=== PATIENT | female | born 1965 | race Caucasian/White ===

== ENCOUNTER → 2022-09-13 | Day surgery (SDC) | payer OTHER ==
[2022-09-10 15:48] VITALS: BMI 29.8
[~2022-09-13] MED LIST: ACETAMINOPHEN 325 MG TABLET (FP) PO PRN; BUPIVACAINE HCL/PF 0.25% (2.5MG/ML) 10 ML VIAL ONE; ESCITALOPRAM OXALATE 10 MG TABLET PO SCH; FAMOTIDINE 20 MG/50 ML IVPB 20 MG/50 ML MG IVPB SCH; FENTANYL CITRATE/PF 50 MCG/ML VIAL ONE; GLYCOPYRROLATE 0.2 MG/1 ML VIAL ONE; KETOROLAC TROMETHAMINE 30 MG/1 ML VIAL ONE; LACTATED RINGERS SOLUTION 1,000 ML IV SCH; LEVOTHYROXINE NA 100 MCG TABLET (FP) PO SCH; LIRAGLUTIDE 3 MG/0.5 ML SQ SCH; MIDAZOLAM HCL 2 MG/2 ML SINGLE DOSE VIAL ONE; NEOSTIGMINE METHYLSULFATE 0.5 MG/1 ML - 10 ML MDV ONE; ONDANSETRON 4 MG/2 ML VIAL IVPUSH PRN; PROMETHAZINE HCL 25 MG/1 ML VIAL IVPB PRN; PROPOFOL 20 ML ONE; ROCURONIUM BROMIDE 50 MG/5 ML SYRINGE ONE; SODIUM CHLORIDE 0.9% P/F 10 ML VIAL IJ ONE; SODIUM CHLORIDE 1,000 ML IV SCH; ceFAZolin SODIUM 1 GM VIAL ONE; oxyCODONE HCL 5 MG TABLET ONE; oxyCODONE HCL 5 MG TABLET PO ONE; oxyCODONE HCL 5 MG TABLET PO PRN
[2022-09-13 10:08] VITALS: RESP 16
[2022-09-13 10:30] VITALS: TEMP 97.8
[2022-09-13 11:01] VITALS: BP 123/67; PULSE 88
== END | disposition home or self-care (01) ==
LOC: FASU 06:46
PROVIDERS: ATTEND Surgery
PROC: 0DP64CZ Removal of Extraluminal Device from Stomach, Percutaneous Endoscopic Approach (ICD-10-PCS; principal; 2022-09-13 08:21)
DX: T85.518A Breakdown (mechanical) of other gastrointestinal prosthetic devices, implants and grafts, initial encounter (principal); K95.09 Other complications of gastric band procedure; R11.2 Nausea with vomiting, unspecified; R13.10 Dysphagia, unspecified; Y73.3 Surgical instruments, materials and gastroenterology and urology devices (including sutures) associated with adverse incidents; Y93.89 Activity, other specified; Y92.89 Other specified places as the place of occurrence of the external cause
CPT/HCPCS: 88300-TC; 94760